=== PATIENT | male | born 2000 | race Caucasian/White ===

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

== ENCOUNTER 2020-03-08 03:13 | Emergency (ER) | payer OTHER ==
[~2020-03-08 03:13] MED LIST: KEPP1TAB2 PO
[2020-03-08] MEDS ORDERED: NS 1,000 ML IV ONE (03:30)
[2020-03-08] MEDS ORDERED: levETIRAcetam INJection 1,000 MG in D5W 100 ML IV ONE (03:30)
[2020-03-08 03:57] LABS: BASO % 0.3 % (0.0-1.0); EOS # 0.3 10^3/uL (0.0-0.5); EOS % 2.8 % (0.0-3.0); HEMATOCRIT 42.2 % (42.0-52.0); HEMOGLOBIN 13.8 g/dl (13.5-17.5); LYMPH % 28.3 % (24.0-44.0); MEAN CORPUSCULAR HEMOGLOBIN 28.8 pg (27.0-33.0); MEAN CORPUSCULAR HGB CONC 32.7 g/dl (32.0-36.5); MEAN CORPUSCULAR VOLUME 87.9 fl (80.0-96.0); MONO # 0.5 10^3/uL (0.0-0.8); MONO % 5.1 % (0.0-5.0); NEUTROPHILS # 6.7 10^3/uL (1.5-8.5); NEUTROPHILS % 63.2 % (36.0-66.0); PLATELET COUNT, AUTOMATED 244 10^3/uL (150-450); WHITE BLOOD COUNT 10.6 10^3/uL (4.0-10.0)
[2020-03-08 04:38] LABS: ACETAMINOPHEN LEVEL < 2.0 UG/ML (10.0-30.0); ALBUMIN 4.1 GM/DL (3.2-5.2); ALT/SGPT 18 U/L (12-78); BILIRUBIN,DIRECT 0.1 MG/DL (0.0-0.2); BILIRUBIN,TOTAL 0.4 MG/DL (0.2-1.0); BLOOD UREA NITROGEN 10 MG/DL (7-18); CALCIUM LEVEL 9.3 MG/DL (8.5-10.1); CARBON DIOXIDE LEVEL 21 MEQ/L (21-32); CHLORIDE LEVEL 106 MEQ/L (98-107); CREATININE FOR GFR 1.21 MG/DL (0.70-1.30); ETHYL ALCOHOL (ETHANOL) < 0.003 % (0.000-0.010); GLUCOSE, FASTING 129 MG/DL (70-100); POTASSIUM SERUM 3.7 MEQ/L (3.5-5.1); SALICYLATE LEVEL < 1.7 MG/DL (5.0-30.0); SODIUM LEVEL 138 MEQ/L (136-145); TOTAL PROTEIN 7.7 GM/DL (6.4-8.2)
[2020-03-08 04:53] LABS: AMPHETAMINES LEVEL URINE NEGATIVE (NEGATIVE); BARBITURATES URINE NEGATIVE (NEGATIVE); BENZODIAZEPINES URINE NEGATIVE (NEGATIVE); CANNABINOIDS URINE POSITIVE (NEGATIVE); COCAINE METABOLITE URINE NEGATIVE (NEGATIVE); METHADONE URINE NEGATIVE (NEGATIVE); OPIATES URINE NEGATIVE (NEGATIVE); PHENCYCLIDINE URINE NEGATIVE (NEGATIVE)
--- NOTE | 2020-03-08 05:05 | REPVR ---
PROCEDURE INFORMATION: Exam: CT Head Without Contrast Exam date and time: 03/08/2020 3:20 AM Age: 19 years old Clinical indication: Patient HX: HX seizures; Additional info: Altered mental status TECHNIQUE: Imaging protocol: Computed tomography of the head without contrast. Radiation optimization: All CT scans at this facility use at least one of these dose optimization techniques: automated exposure control; mA and/or kV adjustment per patient size (includes targeted exams where dose is matched to clinical indication); or iterative reconstruction. COMPARISON: CT Head without contrast 12/24/2019 10:29 AM FINDINGS: Brain: No evidence of acute intracranial hemorrhage or mass effect. Preservation of the mathew-white matter differentiation. Cerebral ventricles: Unremarkable. No ventriculomegaly. Bones/joints: Unremarkable. No acute fracture. Paranasal sinuses: Chronic ethmoid sinus mucosal thickening. No air-fluid levels. Mastoid air cells: Visualized mastoid air cells are well aerated. Soft tissues: Unremarkable. IMPRESSION: Stable head CT. No acute intracranial abnormality. Electronically signed by: Daren Eason On 03/08/2020 05:05:02 AM
[2020-03-08 06:00] VITALS: BP 128/60
--- NOTE | 2020-03-09 18:50 | ECGEPIP ---
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
== END 2020-03-08 06:25 | disposition home or self-care (01) ==
LOC: M ED 03:13
DX: G40.909 Epilepsy, unspecified, not intractable, without status epilepticus (principal); Z79.899 Other long term (current) drug therapy; Z88.0 Allergy status to penicillin; Z88.7 Allergy status to serum and vaccine; Z88.8 Allergy status to other drugs, medicaments and biological substances
CPT/HCPCS: 70450; 80048; 80076; 80307; 84443; 85025; 93005; 93041; 94760; 96361; 96365; 99291; G0480; J1953

== ENCOUNTER 2020-09-09 09:58 | Emergency (ER) | payer MEDICAID, OTHER ==
[~2020-09-09] VITALS: Ht 177.8 cm; Wt 90.9 kg
[2020-09-09] MEDS ORDERED: levETIRAcetam INJection 1,000 MG in D5W 100 ML IV ONE (11:15)
[2020-09-09] MEDS ORDERED: KEPP10002 PO (11:19)
[2020-09-09 11:30] VITALS: BP 147/94
== END 2020-09-09 12:14 | disposition home or self-care (01) ==
LOC: M ED 09:58 → EDBD 09:58 → M ED 12:14
DX: G40.909 Epilepsy, unspecified, not intractable, without status epilepticus (principal); Z88.0 Allergy status to penicillin; Z88.7 Allergy status to serum and vaccine; Z88.8 Allergy status to other drugs, medicaments and biological substances
CPT/HCPCS: 80180; 96365; 99284; J1953

== ENCOUNTER 2020-10-05 11:46 | Emergency (ER) | payer MEDICAID, OTHER ==
[~2020-10-05] VITALS: Ht 177.8 cm; Wt 90.9 kg
[~2020-10-05 11:46] MED LIST changes: +KEPP10002 PO
[2020-10-05 12:38] LABS: BASO % 0.2 % (0.0-1.0); EOS # 0.1 10^3/uL (0.0-0.5); EOS % 1.4 % (0.0-3.0); HEMATOCRIT 45.5 % (42.0-52.0); HEMOGLOBIN 15.3 g/dl (13.5-17.5); LYMPH # 1.4 10^3/uL (1.5-5.0); LYMPH % 15.4 % (24.0-44.0); MEAN CORPUSCULAR HEMOGLOBIN 29.3 pg (27.0-33.0); MEAN CORPUSCULAR HGB CONC 33.6 g/dl (32.0-36.5); MONO # 0.5 10^3/uL (0.0-0.8); MONO % 5.4 % (2.0-8.0); NEUTROPHILS # 6.9 10^3/uL (1.5-8.5); NEUTROPHILS % 77.2 % (36.0-66.0); PLATELET COUNT, AUTOMATED 231 10^3/uL (150-450); RED BLOOD COUNT 5.23 10^6/uL (4.30-6.10)
[2020-10-05] MEDS ORDERED: levETIRAcetam 250MG TABLET (KEPPRA) PO ONE (12:50)
[2020-10-05 13:03] LABS: ACETAMINOPHEN LEVEL < 2.0 UG/ML (10.0-30.0); ALT/SGPT 21 U/L (12-78); BILIRUBIN,DIRECT < 0.1 MG/DL (0.0-0.2); BILIRUBIN,TOTAL 0.4 MG/DL (0.2-1.0); BLOOD UREA NITROGEN 14 MG/DL (7-18); CALCIUM LEVEL 9.2 MG/DL (8.5-10.1); CARBON DIOXIDE LEVEL 24 MEQ/L (21-32); CHLORIDE LEVEL 109 MEQ/L (98-107); CK-MB VALUE MASS < 1.0 NG/ML (<3.6); CPK CREATINE PHOSPHOKINASE 102 U/L (39-308); CREATININE FOR GFR 0.99 MG/DL (0.70-1.30); ETHYL ALCOHOL (ETHANOL) < 0.003 % (0.000-0.010); GLUCOSE, FASTING 95 MG/DL (70-100); MB/CK RELATIVE INDEX 0.98 (< OR =4); POTASSIUM SERUM 4.3 MEQ/L (3.5-5.1); SALICYLATE LEVEL < 1.7 MG/DL (5.0-30.0); SODIUM LEVEL 141 MEQ/L (136-145); TOTAL PROTEIN 7.8 GM/DL (6.4-8.2); TROPONIN I < 0.02 NG/ML (< 0.10)
[2020-10-05 13:15] VITALS: BP 174/106
[2020-10-05 14:06] LABS: AMPHETAMINES LEVEL URINE NEGATIVE (NEGATIVE); BARBITURATES URINE NEGATIVE (NEGATIVE); BENZODIAZEPINES URINE NEGATIVE (NEGATIVE); CANNABINOIDS URINE POSITIVE (NEGATIVE); COCAINE METABOLITE URINE NEGATIVE (NEGATIVE); METHADONE URINE NEGATIVE (NEGATIVE); OPIATES URINE NEGATIVE (NEGATIVE); PHENCYCLIDINE URINE NEGATIVE (NEGATIVE)
== END 2020-10-05 13:41 | disposition left against medical advice (07) ==
LOC: EDBD 11:46 → M ED 11:46
DX: G40.909 Epilepsy, unspecified, not intractable, without status epilepticus (principal); Z88.0 Allergy status to penicillin; Z88.7 Allergy status to serum and vaccine

== ENCOUNTER 2020-10-05 14:42 | Emergency (ER) | payer MEDICAID, OTHER ==
[~2020-10-05] VITALS: Ht 177.8 cm; Wt 94.5 kg
[2020-10-05] MEDS ORDERED: NS 1,000 ML IV SCH (14:55)
[2020-10-05] MEDS ORDERED: levETIRAcetam INJection 1,000 MG in D5W 100 ML IV ONE (14:55)
[2020-10-05] MEDS ORDERED: ONDANSETRON 4MG/2ML VIAL IV ONE (15:10)
[2020-10-05] MEDS ORDERED: ACETAMINOPHEN 325 MG TAB PO ONE (15:20)
--- NOTE | 2020-10-05 15:43 | REP ---
INDICATION: sz. COMPARISON: 12/24/2019. TECHNIQUE: Single portable AP view of the chest was performed. FINDINGS: There is no acute infiltrate or pulmonary edema. Lungs are clear. The heart is not significantly enlarged. The mediastinal silhouette is unremarkable. The visualized osseous structures are intact. IMPRESSION: No acute pulmonary disease. <Electronically signed by Rogelio Kwong > 10/05/20 [id number]
[2020-10-05] MEDS ORDERED: METOCLOPRAMIDE INJ 10MG/2ML VIAL (J2765 PER 1) As Ordered ONE (15:48)
[2020-10-05] MEDS ORDERED: METOCLOPRAMIDE INJ 10MG/2ML VIAL (J2765 PER 1) IV ONE (15:50)
[2020-10-05 17:51] VITALS: BP 129/59
--- NOTE | 2020-10-06 11:17 | REP ---
INDICATION: sz. COMPARISON: 03/08/2020. TECHNIQUE: CT brain performed in the axial plane. Coronal reconstruction images are performed. FINDINGS: The ventricles are normal in size and position.. There is no midline shift or mass effect. Kwong-white differentiation is well maintained. There is no acute intracranial hemorrhage or extra-axial fluid collection. The mastoid air cells are clear. There is moderate opacification of bilateral ethmoid sinuses. There is mild mucosal thickening in the sphenoid sinus is in the midline. IMPRESSION: Sinus mucosal disease as discussed above. Otherwise, negative noncontrast CT brain. A preliminary report was provided by [facility] at the time of the exam. <Electronically signed by Rogelio Kwong > 10/06/20 1114
== END 2020-10-05 17:58 | disposition home or self-care (01) ==
LOC: M ED 14:42 → EDBD 14:42 → M ED 17:58
DX: G40.909 Epilepsy, unspecified, not intractable, without status epilepticus (principal); F33.9 Major depressive disorder, recurrent, unspecified; Z88.0 Allergy status to penicillin; Z88.7 Allergy status to serum and vaccine; Z79.899 Other long term (current) drug therapy
CPT/HCPCS: 70450; 71045; 96361; 96365; 96375; 99285; J1953; J2405; J2765

== ENCOUNTER → 2021-03-26 | Outpatient (REF) | payer OTHER ==
[2021-03-26 19:41] LABS: RSV AMPLIFICATION NEGATIVE (NEGATIVE)
== END ==
LOC: M LAB REF 16:33
PROVIDERS: ATTEND Physician Assistant Medical
DX: Z20.822 Contact with and (suspected) exposure to COVID-19 (principal)

== ENCOUNTER → 2021-06-13 | Outpatient (CLI) | payer OTHER ==
[2021-06-13 10:28] LABS: BASO % 0.3 % (0.0-1.0); EOS # 0.2 10^3/uL (0.0-0.5); EOS % 2.8 % (0.0-3.0); HEMATOCRIT 45.3 % (42.0-52.0); HEMOGLOBIN 14.9 g/dl (13.5-17.5); LYMPH % 27.5 % (24.0-44.0); MEAN CORPUSCULAR HEMOGLOBIN 29.3 pg (27.0-33.0); MEAN CORPUSCULAR HGB CONC 32.9 g/dl (32.0-36.5); MONO # 0.6 10^3/uL (0.0-0.8); NEUTROPHILS # 4.4 10^3/uL (1.5-8.5); NEUTROPHILS % 60.8 % (36.0-66.0); PLATELET COUNT, AUTOMATED 262 10^3/uL (150-450); RED BLOOD COUNT 5.09 10^6/uL (4.30-6.10); WHITE BLOOD COUNT 7.3 10^3/uL (4.0-10.0)
[2021-06-13 10:54] LABS: ALT/SGPT 36 U/L (12-78); BILIRUBIN,TOTAL 0.3 MG/DL (0.2-1.0); BLOOD UREA NITROGEN 15 MG/DL (7-18); CALCIUM LEVEL 9.4 MG/DL (8.5-10.1); CARBON DIOXIDE LEVEL 25 MEQ/L (21-32); CHLORIDE LEVEL 109 MEQ/L (98-107); CHOLESTEROL LEVEL 175 MG/DL (<200); CREATININE FOR GFR 0.95 MG/DL (0.70-1.30); GLUCOSE, FASTING 100 MG/DL (70-100); POTASSIUM SERUM 4.3 MEQ/L (3.5-5.1); SODIUM LEVEL 140 MEQ/L (136-145); TRIGLYCERIDES LEVEL 72 MG/DL (<150)
[2021-06-13 10:55] LABS: ALBUMIN 4.1 GM/DL (3.2-5.2); CHOLESTEROL RISK RATIO 4.166 (<5); HDL CHOLESTEROL 42 MG/DL (>40); LDL CHOLESTEROL 119 MG/DL (<100); NON-HDL-C 133 MG/DL; THYROID STIMULATING HORMONE 0.771 uIU/ML (0.463-3.98); TOTAL PROTEIN 7.9 GM/DL (6.4-8.2)
[2021-06-13 11:09] LABS: HEMOGLOBIN A1c 5.1 %
== END ==
LOC: M PLALAB 09:00
PROVIDERS: ATTEND Physician Assistant Medical
DX: Z13.1 Encounter for screening for diabetes mellitus (principal); Z13.220 Encounter for screening for lipoid disorders; F41.9 Anxiety disorder, unspecified; K64.4 Residual hemorrhoidal skin tags; R56.9 Unspecified convulsions

== ENCOUNTER → 2021-08-30 | Outpatient (REF) | payer OTHER | LOC: M LAB REF 12:23 | PROVIDERS: ATTEND Physician Assistant | DX: J06.9 Acute upper respiratory infection, unspecified (principal) ==

== ENCOUNTER → 2022-05-01 | Outpatient (CLI) | payer OTHER ==
[2022-05-01 15:59] LABS: BASO % 0.3 % (0.0-1.0); EOS # 0.2 10^3/uL (0.0-0.5); EOS % 2.2 % (0.0-3.0); HEMATOCRIT 44.4 % (42.0-52.0); HEMOGLOBIN 14.6 g/dl (13.5-17.5); LYMPH # 2.6 10^3/uL (1.5-5.0); LYMPH % 27.6 % (24.0-44.0); MEAN CORPUSCULAR HEMOGLOBIN 29.4 pg (27.0-33.0); MEAN CORPUSCULAR HGB CONC 32.9 g/dl (32.0-36.5); MEAN CORPUSCULAR VOLUME 89.3 fl (80.0-96.0); MONO # 0.7 10^3/uL (0.0-0.8); MONO % 7.8 % (2.0-8.0); NEUTROPHILS # 5.7 10^3/uL (1.5-8.5); NEUTROPHILS % 61.7 % (36.0-66.0); PLATELET COUNT, AUTOMATED 284 10^3/uL (150-450); RED BLOOD COUNT 4.97 10^6/uL (4.30-6.10); WHITE BLOOD COUNT 9.3 10^3/uL (4.0-10.0)
[2022-05-01 16:32] LABS: VALPROIC ACID (DEPAKOTE) 78.4 UG/ML (50.0-100.0)
[2022-05-01 16:34] LABS: ALBUMIN 3.9 G/DL (3.2-5.2); ALKALINE PHOSPHATASE 67 U/L (46-116); ALT/SGPT 11 U/L (7.0-40); AST/SGOT 8 U/L (<34); BILIRUBIN,TOTAL 0.4 MG/DL (0.3-1.2); BLOOD UREA NITROGEN 13 MG/DL (9-23); CALCIUM LEVEL 9.5 MG/DL (8.5-10.1); CARBON DIOXIDE LEVEL 25 MMOL/L (20-31); CHLORIDE LEVEL 105 MMOL/L (98-107); CREATININE FOR GFR 0.92 MG/DL (0.70-1.30); GLOMERULAR FILTRATION RATE > 60.0 (>60); GLUCOSE, FASTING 80 MG/DL (60-100); POTASSIUM SERUM 4.2 MMOL/L (3.5-5.1); SODIUM LEVEL 141 MMOL/L (136-145); TOTAL PROTEIN 7.6 G/DL (5.7-8.2)
== END ==
LOC: M LAB 15:09
PROVIDERS: ATTEND Psychiatry & Neurology Neurology
DX: R56.9 Unspecified convulsions (principal)

== ENCOUNTER 2022-12-11 18:54 | Emergency (ER) | payer OTHER ==
[~2022-12-11] VITALS: Ht 167.6 cm; Wt 86.4 kg
[2022-12-11 19:57] LABS: BASO % 0.3 % (0.0-1.0); EOS # 0.2 10^3/uL (0.0-0.5); EOS % 2.4 % (0.0-3.0); HEMATOCRIT 42.9 % (42.0-52.0); HEMOGLOBIN 14.3 g/dl (13.5-17.5); LYMPH # 2.3 10^3/uL (1.5-5.0); LYMPH % 24.4 % (24.0-44.0); MEAN CORPUSCULAR HEMOGLOBIN 30.2 pg (27.0-33.0); MEAN CORPUSCULAR HGB CONC 33.3 g/dl (32.0-36.5); MEAN CORPUSCULAR VOLUME 90.7 fl (80.0-96.0); MONO # 0.5 10^3/uL (0.0-0.8); MONO % 5.7 % (2.0-8.0); NEUTROPHILS # 6.3 10^3/uL (1.5-8.5); NEUTROPHILS % 66.7 % (36.0-66.0); PLATELET COUNT, AUTOMATED 215 10^3/uL (150-450); RED BLOOD COUNT 4.73 10^6/uL (4.30-6.10); WHITE BLOOD COUNT 9.5 10^3/uL (4.0-10.0)
[2022-12-11 20:09] LABS: ETHYL ALCOHOL (ETHANOL) < 0.003 % (0.000-0.010)
[2022-12-11 20:10] LABS: CPK CREATINE PHOSPHOKINASE 75 U/L (46-171)
[2022-12-11 20:11] LABS: ALKALINE PHOSPHATASE 55 U/L (46-116); ALT/SGPT 16 U/L (7.0-40); AST/SGOT < 8 U/L (<34); BILIRUBIN,TOTAL 0.3 MG/DL (0.3-1.2); BLOOD UREA NITROGEN 12 MG/DL (9-23); CALCIUM LEVEL 9.7 MG/DL (8.5-10.1); CARBON DIOXIDE LEVEL 24 MMOL/L (20-31); CHLORIDE LEVEL 107 MMOL/L (98-107); CREATININE FOR GFR 0.87 MG/DL (0.70-1.30); GLOMERULAR FILTRATION RATE > 60.0 (>60); GLUCOSE, FASTING 91 MG/DL (60-100); MAGNESIUM LEVEL 1.7 MG/DL (1.8-2.4); PHOSPHORUS LEVEL 3.1 MG/DL (2.5-4.9); POTASSIUM SERUM 3.9 MMOL/L (3.5-5.1); SODIUM LEVEL 140 MMOL/L (136-145); TOTAL PROTEIN 7.5 G/DL (5.7-8.2)
[2022-12-11] MEDS ORDERED: MAG SULF 1GM/100ML (MAG RUN) 1 GM in IV 1 EA IV ONE (21:05)
[2022-12-11 21:24] LABS: VALPROIC ACID (DEPAKOTE) 63.7 UG/ML (50.0-100.0)
[2022-12-11] MEDS ORDERED: DEPA500T2 PO (22:00)
[2022-12-11] MEDS ORDERED: VALPROATE SOD INJ 500 MG in D5W 50 ML IV ONE (22:05)
[2022-12-11 23:45] VITALS: BP 125/64; TEMP 98.3; O2SAT 98
== END 2022-12-11 23:57 | disposition home or self-care (01) ==
LOC: M ED 18:54 → EDBD 18:54 → M ED 23:57
DX: R56.9 Unspecified convulsions (principal); Z79.899 Other long term (current) drug therapy; Z88.0 Allergy status to penicillin; Z88.7 Allergy status to serum and vaccine
CPT/HCPCS: 70450; 80053; 80164; 80180; 80299; 82077; 82550; 83605; 83735; 84100; 85025; 96365; 96367; 99284; J3475

== ENCOUNTER 2023-02-20 21:05 | Emergency (ER) | payer OTHER ==
[~2023-02-20] VITALS: Ht 180.3 cm; Wt 86.4 kg
[~2023-02-20 21:05] MED LIST changes: +DEPA500T2 PO
[2023-02-20] MEDS ORDERED: levETIRAcetam INJection 1,000 MG in D5W 100 ML IV ONE (21:30)
[2023-02-20 22:08] LABS: BASO % 0.2 % (0.0-1.0); EOS % 0.1 % (0.0-3.0); HEMATOCRIT 42.6 % (42.0-52.0); HEMOGLOBIN 14.8 g/dl (13.5-17.5); LYMPH # 1.5 10^3/uL (1.5-5.0); LYMPH % 9.8 % (24.0-44.0); MEAN CORPUSCULAR HEMOGLOBIN 31.2 pg (27.0-33.0); MEAN CORPUSCULAR HGB CONC 34.7 g/dl (32.0-36.5); MEAN CORPUSCULAR VOLUME 89.7 fl (80.0-96.0); MONO # 0.5 10^3/uL (0.0-0.8); MONO % 3.3 % (2.0-8.0); NEUTROPHILS # 13.2 10^3/uL (1.5-8.5); NEUTROPHILS % 86.1 % (36.0-66.0); PLATELET COUNT, AUTOMATED 269 10^3/uL (150-450); RED BLOOD COUNT 4.75 10^6/uL (4.30-6.10); WHITE BLOOD COUNT 15.3 10^3/uL (4.0-10.0)
[2023-02-20 22:32] LABS: VALPROIC ACID (DEPAKOTE) 8.4 UG/ML (50.0-100.0)
[2023-02-20 22:33] LABS: ALKALINE PHOSPHATASE 62 U/L (46-116); ALT/SGPT 15 U/L (7.0-40); AST/SGOT 11 U/L (<34); BILIRUBIN,DIRECT 0.2 MG/DL (<0.4); BILIRUBIN,TOTAL 0.4 MG/DL (0.3-1.2); BLOOD UREA NITROGEN 14 MG/DL (9-23); CALCIUM LEVEL 9.2 MG/DL (8.5-10.1); CARBON DIOXIDE LEVEL 21 MMOL/L (20-31); CHLORIDE LEVEL 105 MMOL/L (98-107); GLOMERULAR FILTRATION RATE > 60.0 (>60); GLUCOSE, FASTING 170 MG/DL (60-100); POTASSIUM SERUM 3.8 MMOL/L (3.5-5.1); SODIUM LEVEL 140 MMOL/L (136-145); TOTAL PROTEIN 7.6 G/DL (5.7-8.2)
[2023-02-20] MEDS ORDERED: NS 1,000 ML IV ONE (23:00)
[2023-02-20] MEDS ORDERED: ACETAMINOPHEN TAB 650MG DOSE (2X325MG) PO ONE (23:35)
[2023-02-20] MEDS ORDERED: TOPIRAMATE (TopAMAX) 100 MG TAB PO ONE (23:45)
[2023-02-20] MEDS ORDERED: VALPROATE SOD INJ 1,000 MG in D5W 50 ML IV ONE (23:50)
[2023-02-20] MEDS ORDERED: levETIRAcetam 250MG TABLET (KEPPRA) PO ONE (23:50)
[2023-02-20] MEDS ORDERED: KEPP1TAB2 PO (23:58)
[2023-02-20] MEDS ORDERED: TOPA100T12 PO (23:59)
[2023-02-20] MEDS ORDERED: DEPA250T32 PO (23:59)
[2023-02-21 00:16] LABS: AMPHETAMINES LEVEL URINE NEGATIVE (NEGATIVE)
[2023-02-21 00:17] LABS: BARBITURATES URINE NEGATIVE (NEGATIVE); BENZODIAZEPINES URINE NEGATIVE (NEGATIVE); COCAINE METABOLITE URINE NEGATIVE (NEGATIVE); METHADONE URINE NEGATIVE (NEGATIVE); OPIATES URINE NEGATIVE (NEGATIVE); PHENCYCLIDINE URINE NEGATIVE (NEGATIVE)
[2023-02-21 00:21] LABS: CANNABINOIDS URINE POSITIVE (NEGATIVE)
[2023-02-21 00:45] VITALS: BP 120/71; TEMP 97.9; O2SAT 98
== END 2023-02-21 01:32 | disposition home or self-care (01) ==
LOC: M ED 21:05 → EDBD 21:05 → M ED 02-21 01:32
DX: G40.909 Epilepsy, unspecified, not intractable, without status epilepticus (principal); G43.909 Migraine, unspecified, not intractable, without status migrainosus; Z88.0 Allergy status to penicillin; Z88.1 Allergy status to other antibiotic agents; Z88.7 Allergy status to serum and vaccine; Z79.83 Long term (current) use of bisphosphonates; Z79.899 Other long term (current) drug therapy
CPT/HCPCS: 70450; 71045; 80048; 80076; 80164; 80180; 80307; 81001; 85025; 93005; 94760; 96365; 96366; 96375; 99284; J1953

== ENCOUNTER 2023-04-13 12:07 | Emergency (ER) | payer OTHER ==
[~2023-04-13] VITALS: Ht 180.3 cm; Wt 83.6 kg
[~2023-04-13 12:07] MED LIST changes: +DEPA250T32 PO; +TOPA100T12 PO
[2023-04-13] MEDS ORDERED: TOPI-21 PO (12:26)
[2023-04-13] MEDS ORDERED: DEPA500T2 PO ×2 (12:26)
[2023-04-13 12:51] LABS: HEMATOCRIT 42.5 % (42.0-52.0); HEMOGLOBIN 14.3 g/dl (13.5-17.5); MEAN CORPUSCULAR HEMOGLOBIN 30.6 pg (27.0-33.0); MEAN CORPUSCULAR HGB CONC 33.6 g/dl (32.0-36.5); MEAN CORPUSCULAR VOLUME 90.8 fl (80.0-96.0); PLATELET COUNT, AUTOMATED 284 10^3/uL (150-450); RED BLOOD COUNT 4.68 10^6/uL (4.30-6.10); WHITE BLOOD COUNT 8.2 10^3/uL (4.0-10.0)
[2023-04-13] MEDS ORDERED: MED REC IN PROGRESS XX SCH (12:55)
[2023-04-13] MEDS ORDERED: DIVA250T67 PO (13:13)
[2023-04-13] MEDS ORDERED: VITATAB73 PO (13:13)
[2023-04-13] MEDS ORDERED: LEVE750T5 PO (13:13)
[2023-04-13] MEDS ORDERED: MULTCHW14 PO (13:13)
[2023-04-13] MEDS ORDERED: LEVE10003 PO (13:13)
[2023-04-13 13:17] LABS: AMPHETAMINES LEVEL URINE NEGATIVE (NEGATIVE); BARBITURATES URINE NEGATIVE (NEGATIVE); BENZODIAZEPINES URINE NEGATIVE (NEGATIVE); COCAINE METABOLITE URINE NEGATIVE (NEGATIVE); METHADONE URINE NEGATIVE (NEGATIVE); OPIATES URINE NEGATIVE (NEGATIVE); PHENCYCLIDINE URINE NEGATIVE (NEGATIVE)
[2023-04-13 13:18] LABS: CANNABINOIDS URINE POSITIVE (NEGATIVE)
[2023-04-13 13:19] LABS: ETHYL ALCOHOL (ETHANOL) < 0.003 % (0.000-0.010)
[2023-04-13 13:20] LABS: SALICYLATE LEVEL < 3.0 MG/DL (<30)
[2023-04-13] MEDS ORDERED: HOME MED LIST COMPLETE! XX SCH (13:20)
[2023-04-13 13:21] LABS: ALKALINE PHOSPHATASE 57 U/L (46-116); ALT/SGPT 21 U/L (7.0-40); AST/SGOT < 8 U/L (<34); BILIRUBIN,DIRECT 0.1 MG/DL (<0.4); BILIRUBIN,TOTAL 0.3 MG/DL (0.3-1.2); BLOOD UREA NITROGEN 15 MG/DL (9-23); CALCIUM LEVEL 9.6 MG/DL (8.5-10.1); CARBON DIOXIDE LEVEL 23 MMOL/L (20-31); CHLORIDE LEVEL 109 MMOL/L (98-107); CREATININE FOR GFR 0.92 MG/DL (0.70-1.30); GLOMERULAR FILTRATION RATE > 60.0 (>60); GLUCOSE, FASTING 104 MG/DL (60-100); POTASSIUM SERUM 4.3 MMOL/L (3.5-5.1); SODIUM LEVEL 140 MMOL/L (136-145); TOTAL PROTEIN 7.6 G/DL (5.7-8.2)
[2023-04-13 13:23] LABS: THYROID STIMULATING HORMONE 1.168 uIU/ML (0.55-4.78)
[2023-04-13 15:02] VITALS: BP 110/62; TEMP 97; O2SAT 97
== END 2023-04-13 15:03 | disposition home or self-care (01) ==
LOC: M ED 12:07
DX: F43.0 Acute stress reaction (principal); G40.909 Epilepsy, unspecified, not intractable, without status epilepticus; F12.10 Cannabis abuse, uncomplicated; Z79.810 Long term (current) use of selective estrogen receptor modulators (SERMs); Z79.899 Other long term (current) drug therapy; Z88.0 Allergy status to penicillin; Z88.7 Allergy status to serum and vaccine

== ENCOUNTER 2023-06-10 09:59 | Emergency (ER) | payer OTHER ==
[~2023-06-10] VITALS: Ht 177.8 cm; Wt 82.2 kg
[~2023-06-10 09:59] MED LIST changes: +DIVA250T67 PO; +LEVE10003 PO; +LEVE750T5 PO; +MULTCHW14 PO; +TOPI-21 PO; +VITATAB73 PO
[2023-06-10 12:04] LABS: BASO % 0.5 % (0.0-1.0); EOS # 0.3 10^3/uL (0.0-0.5); EOS % 3.5 % (0.0-3.0); HEMATOCRIT 42.9 % (42.0-52.0); HEMOGLOBIN 14.4 g/dl (13.5-17.5); LYMPH # 2.5 10^3/uL (1.5-5.0); LYMPH % 30.3 % (24.0-44.0); MEAN CORPUSCULAR HEMOGLOBIN 30.8 pg (27.0-33.0); MEAN CORPUSCULAR HGB CONC 33.6 g/dl (32.0-36.5); MEAN CORPUSCULAR VOLUME 91.9 fl (80.0-96.0); MONO # 0.5 10^3/uL (0.0-0.8); MONO % 5.7 % (2.0-8.0); NEUTROPHILS # 4.9 10^3/uL (1.5-8.5); NEUTROPHILS % 59.6 % (36.0-66.0); PLATELET COUNT, AUTOMATED 272 10^3/uL (150-450); RED BLOOD COUNT 4.67 10^6/uL (4.30-6.10); WHITE BLOOD COUNT 8.3 10^3/uL (4.0-10.0)
[2023-06-10 12:31] LABS: LIPASE 26 U/L (12-53)
[2023-06-10 12:33] LABS: ALBUMIN 4.4 G/DL (3.2-5.2); ALKALINE PHOSPHATASE 60 U/L (46-116); ALT/SGPT 11 U/L (7.0-40); AST/SGOT < 8 U/L (<34); BILIRUBIN,DIRECT 0.1 MG/DL (<0.4); BILIRUBIN,TOTAL 0.3 MG/DL (0.3-1.2); BLOOD UREA NITROGEN 13 MG/DL (9-23); CALCIUM LEVEL 9.7 MG/DL (8.5-10.1); CARBON DIOXIDE LEVEL 25 MMOL/L (20-31); CHLORIDE LEVEL 108 MMOL/L (98-107); CREATININE FOR GFR 0.81 MG/DL (0.70-1.30); GLOMERULAR FILTRATION RATE > 60.0 (>60); GLUCOSE, FASTING 92 MG/DL (60-100); POTASSIUM SERUM 4.3 MMOL/L (3.5-5.1); SODIUM LEVEL 138 MMOL/L (136-145); TOTAL PROTEIN 7.9 G/DL (5.7-8.2)
[2023-06-10 13:26] LABS: RSV AMPLIFICATION NEGATIVE (NEGATIVE)
[2023-06-10] MEDS ORDERED: ISOVUE-370 76% 100ML VIAL As Ordered ONE (13:39)
[2023-06-10] MEDS: ACETAMINOPHEN TAB 650MG DOSE (2X325MG) PO ONE (13:53)
[2023-06-10 15:02] VITALS: BP 143/67; TEMP 98.1; O2SAT 99
[2023-06-10] MEDS ORDERED: ONDA4TAB6 PO (15:03)
== END 2023-06-10 15:36 | disposition home or self-care (01) ==
LOC: M ED 09:59
DX: K52.9 Noninfective gastroenteritis and colitis, unspecified (principal); K76.0 Fatty (change of) liver, not elsewhere classified; J45.909 Unspecified asthma, uncomplicated; F12.10 Cannabis abuse, uncomplicated; Z88.0 Allergy status to penicillin; Z88.1 Allergy status to other antibiotic agents; Z88.7 Allergy status to serum and vaccine; Z79.83 Long term (current) use of bisphosphonates; Z79.899 Other long term (current) drug therapy
CPT/HCPCS: 36415; 74177; 80048; 80076; 83690; 85025; 87631; 99284; Q9967

== ENCOUNTER → 2023-08-18 | Outpatient (REF) | payer OTHER ==
[~2023-08-18] MED LIST changes: +ONDA4TAB6 PO
[2023-08-18 17:22] LABS: BASO # 0.1 10^3/uL (0.0-0.2); BASO % 0.5 % (0.0-1.0); EOS # 0.6 10^3/uL (0.0-0.5); EOS % 6.5 % (0.0-3.0); HEMATOCRIT 46.1 % (42.0-52.0); HEMOGLOBIN 15.1 g/dl (13.5-17.5); LYMPH # 2.5 10^3/uL (1.5-5.0); LYMPH % 25.7 % (24.0-44.0); MEAN CORPUSCULAR HEMOGLOBIN 30.9 pg (27.0-33.0); MEAN CORPUSCULAR HGB CONC 32.8 g/dl (32.0-36.5); MEAN CORPUSCULAR VOLUME 94.5 fl (80.0-96.0); MONO # 0.6 10^3/uL (0.0-0.8); MONO % 6.1 % (2.0-8.0); NEUTROPHILS # 5.8 10^3/uL (1.5-8.5); NEUTROPHILS % 60.6 % (36.0-66.0); PLATELET COUNT, AUTOMATED 239 10^3/uL (150-450); RED BLOOD COUNT 4.88 10^6/uL (4.30-6.10); WHITE BLOOD COUNT 9.6 10^3/uL (4.0-10.0)
[2023-08-18 17:31] LABS: HEMOGLOBIN A1c 4.9 % (4.0-6.0)
[2023-08-18 17:52] LABS: ALBUMIN 4.1 G/DL (3.2-5.2); ALKALINE PHOSPHATASE 64 U/L (46-116); ALT/SGPT 17 U/L (7.0-40); AST/SGOT < 8 U/L (<34); BILIRUBIN,TOTAL 0.2 MG/DL (0.3-1.2); BLOOD UREA NITROGEN 16 MG/DL (9-23); CALCIUM LEVEL 9.9 MG/DL (8.5-10.1); CARBON DIOXIDE LEVEL 25 MMOL/L (20-31); CHLORIDE LEVEL 108 MMOL/L (98-107); CHOLESTEROL LEVEL 139 MG/DL (<200); CHOLESTEROL RISK RATIO 3.88 (<5); CREATININE FOR GFR 0.93 MG/DL (0.70-1.30); GLOMERULAR FILTRATION RATE > 60.0 (>60); GLUCOSE, FASTING 88 MG/DL (60-100); HDL CHOLESTEROL 35.8 MG/DL (>40); LDL CHOLESTEROL 80.8 MG/DL (<100); NON-HDL-C 103.2 MG/DL; POTASSIUM SERUM 4.7 MMOL/L (3.5-5.1); SODIUM LEVEL 141 MMOL/L (136-145); THYROID STIMULATING HORMONE 2.082 uIU/ML (0.55-4.78); TOTAL 25(OH) VITAMIN D 31.5 NG/ML (20.0-100.0); TOTAL PROTEIN 7.5 G/DL (5.7-8.2); TRIGLYCERIDES LEVEL 112 MG/DL (<150)
== END ==
LOC: M LAB REF 16:15
PROVIDERS: ATTEND Nurse Practitioner Family
DX: E66.3 Overweight (principal); E55.9 Vitamin D deficiency, unspecified; Z11.9 Encounter for screening for infectious and parasitic diseases, unspecified; R53.83 Other fatigue

== ENCOUNTER 2023-12-21 10:39 | Emergency (ER) | payer OTHER ==
[~2023-12-21] VITALS: Ht 180.3 cm; Wt 79.5 kg
[~2023-12-21 10:39] MED LIST changes: +ONDA-282 PO; -ONDA4TAB6 PO
[2023-12-21] MEDS ORDERED: DIVA500T94 PO (11:35)
[2023-12-21] MEDS ORDERED: FREM225A INJ (11:35)
[2023-12-21 11:40] LABS: HEMATOCRIT 42.8 % (42.0-52.0); HEMOGLOBIN 14.7 g/dl (13.5-17.5); MEAN CORPUSCULAR HEMOGLOBIN 31.7 pg (27.0-33.0); MEAN CORPUSCULAR HGB CONC 34.3 g/dl (32.0-36.5); MEAN CORPUSCULAR VOLUME 92.4 fl (80.0-96.0); PLATELET COUNT, AUTOMATED 203 10^3/uL (150-450); RED BLOOD COUNT 4.63 10^6/uL (4.30-6.10); WHITE BLOOD COUNT 7.5 10^3/uL (4.0-10.0)
[2023-12-21 11:58] LABS: AMPHETAMINES LEVEL URINE NEGATIVE (NEGATIVE); BARBITURATES URINE NEGATIVE (NEGATIVE); BENZODIAZEPINES URINE NEGATIVE (NEGATIVE); COCAINE METABOLITE URINE NEGATIVE (NEGATIVE); METHADONE URINE NEGATIVE (NEGATIVE); OPIATES URINE NEGATIVE (NEGATIVE); PHENCYCLIDINE URINE NEGATIVE (NEGATIVE)
[2023-12-21 12:00] LABS: CANNABINOIDS URINE POSITIVE (NEGATIVE)
[2023-12-21 12:02] LABS: ETHYL ALCOHOL (ETHANOL) < 0.003 % (0.000-0.010)
[2023-12-21 12:03] LABS: SALICYLATE LEVEL < 3.0 MG/DL (<30)
[2023-12-21 12:04] LABS: ALBUMIN 4.1 G/DL (3.2-5.2); ALKALINE PHOSPHATASE 57 U/L (46-116); ALT/SGPT 14 U/L (7.0-40); AST/SGOT < 8 U/L (<34); BILIRUBIN,DIRECT 0.2 MG/DL (<0.4); BILIRUBIN,TOTAL 0.4 MG/DL (0.3-1.2); BLOOD UREA NITROGEN 16 MG/DL (9-23); CALCIUM LEVEL 9.1 MG/DL (8.5-10.1); CARBON DIOXIDE LEVEL 24 MMOL/L (20-31); CHLORIDE LEVEL 110 MMOL/L (98-107); CREATININE FOR GFR 0.88 MG/DL (0.70-1.30); GLOMERULAR FILTRATION RATE > 60.0 (>60); GLUCOSE, FASTING 97 MG/DL (60-100); POTASSIUM SERUM 4.5 MMOL/L (3.5-5.1); SODIUM LEVEL 138 MMOL/L (136-145); TOTAL PROTEIN 7.7 G/DL (5.7-8.2)
[2023-12-21 12:05] LABS: THYROID STIMULATING HORMONE 1.718 uIU/ML (0.55-4.78)
[2023-12-21] MEDS ORDERED: HOME MED LIST COMPLETE! XX SCH (12:45)
[2023-12-21] MEDS ORDERED: PILL CUTTER 1 EACH XX PRN (15:30)
[2023-12-21 17:51] VITALS: BP 122/72; TEMP 97.5; O2SAT 100
[2023-12-21] MEDS ORDERED: levETIRAcetam 250MG TABLET (KEPPRA) PO SCH (21:00)
[2023-12-21] MEDS ORDERED: DIVALPROEX 500 MG TAB PO SCH (21:00)
[2023-12-22] MEDS ORDERED: TOPIRAMATE (TopAMAX) 100 MG TAB PO SCH (09:00)
== END 2023-12-21 17:54 | disposition home or self-care (01) ==
LOC: M ED 10:39
DX: F43.0 Acute stress reaction (principal); F32.A Depression, unspecified; G40.909 Epilepsy, unspecified, not intractable, without status epilepticus; G43.909 Migraine, unspecified, not intractable, without status migrainosus; F12.10 Cannabis abuse, uncomplicated; Z88.0 Allergy status to penicillin; Z88.1 Allergy status to other antibiotic agents; Z88.7 Allergy status to serum and vaccine; Z79.899 Other long term (current) drug therapy

== ENCOUNTER 2024-01-02 18:48 | Emergency (ER) | payer OTHER ==
[~2024-01-02] VITALS: Ht 177.8 cm; Wt 82.2 kg
[~2024-01-02 18:48] MED LIST changes: +DIVA500T94 PO; +FREM225A INJ
[2024-01-02 20:23] LABS: BASO # 0.1 10^3/uL (0.0-0.2); BASO % 0.3 % (0.0-1.0); EOS # 0.2 10^3/uL (0.0-0.5); HEMATOCRIT 42.9 % (42.0-52.0); HEMOGLOBIN 15.1 g/dl (13.5-17.5); LYMPH # 2.9 10^3/uL (1.5-5.0); MEAN CORPUSCULAR HEMOGLOBIN 32.2 pg (27.0-33.0); MEAN CORPUSCULAR HGB CONC 35.2 g/dl (32.0-36.5); MEAN CORPUSCULAR VOLUME 91.5 fl (80.0-96.0); MONO % 5.7 % (2.0-8.0); NEUTROPHILS # 13.6 10^3/uL (1.5-8.5); NEUTROPHILS % 76.4 % (36.0-66.0); PLATELET COUNT, AUTOMATED 284 10^3/uL (150-450); RED BLOOD COUNT 4.69 10^6/uL (4.30-6.10); WHITE BLOOD COUNT 17.8 10^3/uL (4.0-10.0)
[2024-01-02] MEDS: NS 1,000 ML IV ONE (20:33)
[2024-01-02] MEDS: ONDANSETRON 4MG 2ML VIAL IV ONE (20:33)
[2024-01-02] MEDS: KETOROLAC 30 MG/ML 1ML VIAL IV ONE (20:33)
[2024-01-02 20:43] LABS: AMORPHOUS SEDIMENT SMALL (NEGATIVE); APPEARANCE, URINE TURBID (CLEAR); BACTERIA, URINE AUTO NEGATIVE (NEGATIVE); BILIRUBIN, URINE AUTO NEGATIVE (NEGATIVE); BLOOD, URINE BLOOD 2+ (NEGATIVE); COLOR, URINE AMBER (YELLOW); GLUCOSE, URINE (UA) AUTO NEGATIVE (NEGATIVE); KETONE, URINE AUTO TRACE mg/dL (NEGATIVE); LEUKOCYTE ESTERASE, URINE AUTO NEGATIVE (NEGATIVE); MUCUS, URINE SMALL (NEGATIVE); NITRITE, URINE AUTO NEGATIVE (NEGATIVE); PROTEIN, URINE AUTO 2+ mg/dL (NEGATIVE); RBC, URINE AUTO TNTC /HPF (0-3); SPECIFIC GRAVITY URINE AUTO 1.025 (1.002-1.035); SQUAMOUS EPITHELIAL CELL UR AU 0 /HPF (0-6); WBC, URINE AUTO 0 /HPF (0-3)
[2024-01-02 20:47] LABS: LIPASE 27 U/L (12-53)
[2024-01-02 20:54] LABS: ALBUMIN 4.3 G/DL (3.2-5.2); ALKALINE PHOSPHATASE 58 U/L (46-116); ALT/SGPT 12 U/L (7.0-40); AST/SGOT < 8 U/L (<34); BILIRUBIN,DIRECT 0.2 MG/DL (<0.4); BILIRUBIN,TOTAL 0.3 MG/DL (0.3-1.2); TOTAL PROTEIN 8.1 G/DL (5.7-8.2)
[2024-01-02 21:04] LABS: VALPROIC ACID (DEPAKOTE) 50.6 UG/ML (50.0-100.0)
[2024-01-02] MEDS: MORPHINE 2 MG/ML 1ML VIAL IV ONE (21:09)
[2024-01-02 21:54] VITALS: BP 124/60; TEMP 97.1; O2SAT 100
[2024-01-02] MEDS ORDERED: FLOM0.4C39 PO (22:23)
[2024-01-02] MEDS ORDERED: ONDA-282 PO (22:23)
[2024-01-02] MEDS ORDERED: IBUP-1022 PO (22:23)
[2024-01-02] MEDS: TAMSULOSIN 0.4 MG CAP PO ONE (22:24)
== END 2024-01-02 22:39 | disposition home or self-care (01) ==
LOC: M ED 18:48
DX: N13.2 Hydronephrosis with renal and ureteral calculous obstruction (principal); R16.0 Hepatomegaly, not elsewhere classified; G40.909 Epilepsy, unspecified, not intractable, without status epilepticus; J45.909 Unspecified asthma, uncomplicated; F12.10 Cannabis abuse, uncomplicated; Z88.0 Allergy status to penicillin; Z88.7 Allergy status to serum and vaccine; Z88.8 Allergy status to other drugs, medicaments and biological substances; Z79.83 Long term (current) use of bisphosphonates; Z79.899 Other long term (current) drug therapy
CPT/HCPCS: 36415; 74176; 76870; 80047; 80076; 80164; 81001; 83605; 83690; 85025; 93976; 96361; 96374; 96375; 99284; J1885; J2405

== ENCOUNTER → 2024-01-13 | Outpatient (REF) | payer OTHER ==
[~2024-01-13] MED LIST changes: +FLOM0.4C39 PO; +IBUP-1022 PO
[2024-01-13 13:49] LABS: APPEARANCE, URINE CLEAR (CLEAR); BACTERIA, URINE AUTO NEGATIVE (NEGATIVE); BILIRUBIN, URINE AUTO NEGATIVE (NEGATIVE); BLOOD, URINE BLOOD NEGATIVE (NEGATIVE); CALCIUM OXALATE CRYSTALS SMALL; COLOR, URINE YELLOW (YELLOW); GLUCOSE, URINE (UA) AUTO NEGATIVE (NEGATIVE); KETONE, URINE AUTO NEGATIVE (NEGATIVE); LEUKOCYTE ESTERASE, URINE AUTO NEGATIVE (NEGATIVE); MUCUS, URINE SMALL (NEGATIVE); NITRITE, URINE AUTO NEGATIVE (NEGATIVE); PROTEIN, URINE AUTO NEGATIVE (NEGATIVE); RBC, URINE AUTO 0 /HPF (0-3); SQUAMOUS EPITHELIAL CELL UR AU 0 /HPF (0-6); UROBILINOGEN, URINE AUTO 0.2 mg/dL (0.0-2.0); WBC, URINE AUTO 2 /HPF (0-3)
== END ==
LOC: M LAB REF 12:53
PROVIDERS: ATTEND Nurse Practitioner Family
DX: N20.0 Calculus of kidney (principal)

== ENCOUNTER → 2024-04-13 | Outpatient (REF) | payer OTHER | LOC: M LAB REF 13:13 | PROVIDERS: ATTEND Nurse Practitioner Family | DX: R05.9 Cough, unspecified (principal); J06.9 Acute upper respiratory infection, unspecified ==

== ENCOUNTER → 2024-08-31 | Outpatient (REF) ==
[~2024-08-31] MED LIST changes: -FLOM0.4C39 PO; +TAMS-18 PO
== END ==
LOC: M PLAIMG 13:48
PROVIDERS: ATTEND Internal Medicine
DX: M54.50 Low back pain, unspecified (principal)

== ENCOUNTER → 2025-03-21 | Outpatient (REF) | payer OTHER ==
[~2025-03-21] MED LIST changes: -DEPA250T32 PO; +DIVA-41 PO; +DIVA-65 PO; -DIVA500T94 PO; -IBUP-1022 PO; +IBUP600T42 PO
[2025-03-21 17:53] LABS: ALT/SGPT 15 U/L (7.0-40); AST/SGOT 12 U/L (<34); CALCIUM LEVEL 9.3 MG/DL (8.5-10.1); CARBON DIOXIDE LEVEL 25 MMOL/L (20-31); CHLORIDE LEVEL 109 MMOL/L (98-107); CREATININE FOR GFR 0.94 MG/DL (0.70-1.30); GLOMERULAR FILTRATION RATE > 90.0 (>60); POTASSIUM SERUM 4.4 MMOL/L (3.5-5.1); SODIUM LEVEL 141 MMOL/L (136-145)
[2025-03-21 18:05] LABS: ESTIMATED AVERAGE GLUCOSE 100.0 MG/DL (60-110)
== END ==
LOC: M LAB REF 16:09
PROVIDERS: ATTEND Nurse Practitioner Family
DX: R63.8 Other symptoms and signs concerning food and fluid intake (principal)